=== PATIENT | female | born 1990 | race Caucasian/White ===

== ENCOUNTER 2017-08-22 16:23 | Emergency (ER) | payer MEDICAID ==
[~2017-08-22] VITALS: Ht 162.6 cm; Wt 75.5 kg
[2017-08-22 16:45] LABS: CLARITY,URINE SLIGHTLY CLOUDY (Clear); COLOR,URINE YELLOW (Yellow); GLUCOSE, URINE NEGATIVE (Neg); KETONES,URINE NEGATIVE (Neg); LEUKOCYTE ESTERASE ,URINE LARGE (Neg); NITRITES, URINE NEGATIVE (Neg); OCCULT BLOOD,URINE NEGATIVE (Neg); PH,URINE 7.5 (4.8-8.0); PROTEIN,URINE NEGATIVE (Neg); UROBILINOGEN,URINE 0.2 E.U/dL (0.2-1.0)
[2017-08-22 16:55] LABS: UA COLLECTION TYPE CLN CATCH MIDSTREAM
[2017-08-22 16:57] LABS: BACTERIA,URINE 1+ /HPF (Neg); RBC,URINE NONE SEEN /HPF (0-2); SQUAMOUS EPITHELIAL CELL,UR MANY /LPF (FEW); YEAST FEW /HPF (NEGATIVE)
[2017-08-22 17:09] LABS: BASOPHILS % (AUTO) 0.3 % (0-1); EOSINOPHILS # (AUTO) 0.1 X10'3 (0-0.9); HEMATOCRIT 39.9 % (35.0-45.0); HEMOGLOBIN 13.8 g/dl (12.0-16.0); LYMPHOCYTES # (AUTO) 2.7 X10'3 (1.1-4.8); LYMPHOCYTES % (AUTO) 47.9 % (21-51); MEAN CORPUSCULAR HEMOGLOBIN 29.3 PG (27.0-31.0); MEAN CORPUSCULAR HGB CONC 34.5 % (33.0-36.5); MEAN CORPUSCULAR VOLUME 84.8 FL (78-98); MEAN PLATELET VOLUME 7.7 FL (7.4-10.4); MONOCYTES # (AUTO) 0.5 X10'3 (0-0.9); MONOCYTES % (AUTO) 9.2 % (2-12); NEUTROPHILS # (AUTO) 2.3 X10'3 (1.8-7.7); NEUTROPHILS % (AUTO) 41.6 % (42-75); PLATELET COUNT 280 X10'3 (140-440); RED CELL DISTRIBUTION WIDTH 14.1 % (11.5-14.5); WHITE BLOOD COUNT 5.6 X10'3 (4.5-11.0)
[2017-08-22 17:19] LABS: PROTHROMBIN TIME 10.6 SECONDS (9.0-12.0)
[2017-08-22 17:23] LABS: HCG SERUM QL NEGATIVE
[2017-08-22 17:25] LABS: ALANINE AMINOTRANSFERASE 27 U/L (12-78); ALBUMIN 4.1 G/DL (3.4-5.0); ALBUMIN/GLOBULIN RATIO 1.1 (1.1-1.5); ALKALINE PHOSPHATASE 84 IU/L (46-116); AMYLASE 53 U/L (25-115); ANION GAP 5 (8-16); ASPARTATE AMINO TRANSFERASE 23 U/L (10-37); BILIRUBIN,TOTAL 0.8 MG/DL (0.1-1.0); BLOOD UREA NITROGEN 11 MG/DL (7-18); BUN/CREATININE RATIO 18.3 (6.6-38.0); CALCIUM 8.9 MG/DL (8.5-10.1); CHLORIDE 105 MMOL/L (99-107); GLUCOSE 74 MG/DL (70-104); LIPASE 196 U/L (73-393); POTASSIUM 3.8 MMOL/L (3.5-5.1); SODIUM 139 MMOL/L (135-145); TOTAL CARBON DIOXIDE 29.4 MMOL/L (24-32); eGFR > 90 ML/MIN
[2017-08-22 18:48] LABS: CLARITY,URINE Clear (Clear); COLOR,URINE Yellow (Yellow); GLUCOSE, URINE Negative (Neg); KETONES,URINE Negative (Neg); LEUKOCYTE ESTERASE ,URINE Moderate (Neg); NITRITES, URINE Negative (Neg); OCCULT BLOOD,URINE Negative (Neg); PROTEIN,URINE Negative (Neg)
[2017-08-22 18:59] LABS: UA COLLECTION TYPE CLN CATCH MIDSTREAM
[2017-08-22 19:09] LABS: MUCUS STRANDS NONE SEEN /LPF (Neg); RBC,URINE NONE SEEN /HPF (0-2); SQUAMOUS EPITHELIAL CELL,UR FEW /LPF (FEW)
[2017-08-22 19:10] LABS: BACTERIA,URINE FEW /HPF (Neg); WBC,URINE 0-4 /HPF (0-4)
[2017-08-22 19:24] VITALS: BP 120/99
== END 2017-08-22 19:27 | disposition home or self-care (01) ==
LOC: ER 16:24
DX: R10.12 Left upper quadrant pain (principal); F15.10 Other stimulant abuse, uncomplicated; Z60.2 Problems related to living alone
CPT/HCPCS: 36415; 80053; 81001; 82150; 83690; 84703; 85025; 85610; 87088; 99284

== ENCOUNTER 2017-09-29 21:20 | Emergency (ER) | payer MEDICAID ==
[~2017-09-29] VITALS: Ht 162.6 cm; Wt 77.0 kg
[2017-09-29 21:24] VITALS: BP 111/68
[2017-09-29] MEDS ORDERED: diphenhydrAMINE 25mg capsule PO ONE (22:05)
[2017-09-29] MEDS ORDERED: predniSONE 20 mg tablet PO ONE (22:05)
[2017-09-29] MEDS ORDERED: pseudoephedrine 30mg tablet PO ONE (22:05)
[2017-09-29] MEDS ORDERED: DIPH-423 PO (22:06)
[2017-09-29] MEDS ORDERED: PSEU120T43 PO (22:06)
[2017-09-29] MEDS ORDERED: METH4TAB81 PO (22:06)
== END 2017-09-29 22:18 | disposition home or self-care (01) ==
LOC: ER 21:22
DX: L50.9 Urticaria, unspecified (principal); J06.9 Acute upper respiratory infection, unspecified; I10 Essential (primary) hypertension; I25.2 Old myocardial infarction; Z90.710 Acquired absence of both cervix and uterus; F15.90 Other stimulant use, unspecified, uncomplicated; F11.10 Opioid abuse, uncomplicated
CPT/HCPCS: 99283; J7512; Q0163

== ENCOUNTER 2018-04-01 19:51 | Emergency (ER) | payer MEDICAID ==
[~2018-04-01] VITALS: Ht 162.6 cm; Wt 73.7 kg
[~2018-04-01 19:51] MED LIST: DIPH-423 PO; METH4TAB81 PO; PSEU120T56 PO
[2018-04-01 20:09] VITALS: BP 124/75
[2018-04-01] MEDS ORDERED: bacitracin 15gm ointment TP ONE (20:35)
[2018-04-01] MEDS ORDERED: ibuprofen tablet 400 MG TABLET PO ONE (20:35)
[2018-04-01] MEDS ORDERED: LIDOcaine 1.5% w/epinephrine 1:200,000 5ml ampul IJ ONE (20:35)
[2018-04-01] MEDS ORDERED: clindamycin 150mg capsule PO ONE (20:40)
[2018-04-01] MEDS ORDERED: CLIN150C2 PO (21:09)
== END 2018-04-01 21:18 | disposition home or self-care (01) ==
LOC: ER 19:51
DX: L03.113 Cellulitis of right upper limb (principal); I10 Essential (primary) hypertension; F15.10 Other stimulant abuse, uncomplicated; F11.10 Opioid abuse, uncomplicated; Z86.19 Personal history of other infectious and parasitic diseases; Z90.710 Acquired absence of both cervix and uterus; Z86.14 Personal history of Methicillin resistant Staphylococcus aureus infection
CPT/HCPCS: 10060; 99284; A6449; J3490

== ENCOUNTER 2018-04-30 16:16 | Emergency (ER) | payer MEDICAID ==
[~2018-04-30] VITALS: Ht 162.6 cm; Wt 76.4 kg
[~2018-04-30 16:16] MED LIST changes: +CLIN150C2 PO
[2018-04-30 16:42] VITALS: BP 114/68
[2018-04-30 16:53] LABS: BASOPHILS % (AUTO) 0.6 % (0-1); EOSINOPHILS # (AUTO) 0.1 X10'3 (0-0.9); EOSINOPHILS % (AUTO) 1.4 % (0-6); HEMATOCRIT 37.9 % (35.0-45.0); HEMOGLOBIN 13.1 g/dl (12.0-16.0); LYMPHOCYTES # (AUTO) 2.4 X10'3 (1.1-4.8); LYMPHOCYTES % (AUTO) 39.2 % (21-51); MEAN CORPUSCULAR HGB CONC 34.6 % (33.0-36.5); MEAN CORPUSCULAR VOLUME 83.8 FL (78-98); MEAN PLATELET VOLUME 7.8 FL (7.4-10.4); MONOCYTES # (AUTO) 0.6 X10'3 (0-0.9); NEUTROPHILS % (AUTO) 48.8 % (42-75); PLATELET COUNT 292 X10'3 (140-440); RED BLOOD COUNT 4.52 X10'6 (4.20-5.60); RED CELL DISTRIBUTION WIDTH 12.8 % (11.5-14.5); WHITE BLOOD COUNT 6.2 X10'3 (4.5-11.0)
[2018-04-30 16:57] LABS: CLARITY,URINE CLEAR (Clear); COLOR,URINE YELLOW (Yellow); GLUCOSE, URINE NEGATIVE (Neg); KETONES,URINE NEGATIVE (Neg); LEUKOCYTE ESTERASE ,URINE NEGATIVE (Neg); NITRITES, URINE NEGATIVE (Neg); OCCULT BLOOD,URINE NEGATIVE (Neg); PROTEIN,URINE TRACE mg/dl (Neg); URINE HCG NEGATIVE (NEG); UROBILINOGEN,URINE 0.2 E.U/dL (0.2-1.0)
[2018-04-30 17:02] LABS: UA COLLECTION TYPE CLN CATCH MIDSTREAM
[2018-04-30 17:07] LABS: MUCUS STRANDS MODERATE /LPF (Neg); SQUAMOUS EPITHELIAL CELL,UR MODERATE /LPF (FEW)
[2018-04-30 17:07] LABS: ALANINE AMINOTRANSFERASE 24 U/L (12-78); ALBUMIN 3.6 G/DL (3.4-5.0); ALKALINE PHOSPHATASE 101 IU/L (46-116); ANION GAP 10 (8-16); ASPARTATE AMINO TRANSFERASE 19 U/L (10-37); BILIRUBIN,TOTAL 0.3 MG/DL (0.1-1.0); BLOOD UREA NITROGEN 11 MG/DL (7-18); BUN/CREATININE RATIO 16.4 (6.6-38.0); CALCIUM 8.3 MG/DL (8.5-10.1); CHLORIDE 107 MMOL/L (99-107); CREATININE 0.67 MG/DL (0.40-0.90); GLUCOSE 97 MG/DL (70-104); POTASSIUM 4.1 MMOL/L (3.5-5.1); SODIUM 143 MMOL/L (135-145); TOTAL CARBON DIOXIDE 26.2 MMOL/L (24-32); TOTAL PROTEIN 7.3 G/DL (6.4-8.2); eGFR > 90 ML/MIN
[2018-04-30 17:10] LABS: BACTERIA,URINE FEW /HPF (Neg); RBC,URINE NONE SEEN /HPF (0-2); WBC,URINE NONE SEEN /HPF (0-4)
[2018-05-02] MEDS ORDERED: DICY10CA88 PO (18:23)
== END 2018-04-30 17:27 | disposition home or self-care (01) ==
LOC: ER 16:17
DX: R10.33 Periumbilical pain (principal); R19.7 Diarrhea, unspecified; R11.0 Nausea; I10 Essential (primary) hypertension; I25.2 Old myocardial infarction; I25.10 Atherosclerotic heart disease of native coronary artery without angina pectoris; F15.90 Other stimulant use, unspecified, uncomplicated; F11.90 Opioid use, unspecified, uncomplicated; Z79.2 Long term (current) use of antibiotics; Z79.899 Other long term (current) drug therapy; Z60.2 Problems related to living alone
CPT/HCPCS: 36415; 80053; 81001; 81025; 85025; 99284

== ENCOUNTER 2020-04-19 14:31 | Emergency (ER) | payer MEDICAID, OTHER ==
[~2020-04-19] VITALS: Ht 160 cm; Wt 59.1 kg
[~2020-04-19 14:31] MED LIST changes: -CLIN150C2 PO
[2020-04-19 15:09] VITALS: BP 124/85
== END 2020-04-19 16:18 | disposition home or self-care (01) ==
LOC: ER 14:32
DX: F15.10 Other stimulant abuse, uncomplicated (principal); I25.10 Atherosclerotic heart disease of native coronary artery without angina pectoris; I10 Essential (primary) hypertension; Z86.19 Personal history of other infectious and parasitic diseases; Z86.14 Personal history of Methicillin resistant Staphylococcus aureus infection; Z90.710 Acquired absence of both cervix and uterus; Z98.890 Other specified postprocedural states; Z79.899 Other long term (current) drug therapy
CPT/HCPCS: 99281

== ENCOUNTER 2020-05-11 14:22 | Emergency (ER) | payer MEDICAID, OTHER ==
[~2020-05-11] VITALS: Ht 160 cm; Wt 64.0 kg
[2020-05-11 14:30] VITALS: BP 97/63
[2020-05-11 15:15] LABS: CLARITY,URINE SLIGHTLY CLOUDY (Clear); COLOR,URINE YELLOW (Yellow); GLUCOSE, URINE NEGATIVE (Neg); KETONES,URINE NEGATIVE (Neg); LEUKOCYTE ESTERASE ,URINE SMALL (Neg); NITRITES, URINE NEGATIVE (Neg); OCCULT BLOOD,URINE NEGATIVE (Neg); PH,URINE 5.5 (4.8-8.0); PROTEIN,URINE NEGATIVE (Neg); URINE HCG NEGATIVE (NEG); UROBILINOGEN,URINE 0.2 E.U/dL (0.2-1.0)
[2020-05-11 15:20] LABS: UA COLLECTION TYPE CLN CATCH MIDSTREAM
[2020-05-11 15:23] LABS: BACTERIA,URINE FEW /HPF (Neg); RBC,URINE 0-2 /HPF (0-2); SQUAMOUS EPITHELIAL CELL,UR FEW /LPF (FEW)
[2020-05-11 15:24] LABS: MUCUS STRANDS FEW /LPF (Neg); WBC CLUMPS,URINE FEW /HPF (NEGATIVE)
[2020-05-11] MEDS ORDERED: CefTRIAXone 250MG IM Kit w/LIDOcaine IM ONE (15:40)
[2020-05-11] MEDS ORDERED: azithromycin 250mg tablet PO ONE (15:40)
[2020-05-11] MEDS ORDERED: METR500T PO (16:30)
[2020-05-11] MEDS ORDERED: LACT1CAP65 PO (16:30)
== END 2020-05-11 18:34 | disposition home or self-care (01) ==
LOC: ER 14:23
DX: A59.01 Trichomonal vulvovaginitis (principal); I25.10 Atherosclerotic heart disease of native coronary artery without angina pectoris; I10 Essential (primary) hypertension; I25.2 Old myocardial infarction; F11.90 Opioid use, unspecified, uncomplicated; F15.90 Other stimulant use, unspecified, uncomplicated; R11.0 Nausea; Z86.14 Personal history of Methicillin resistant Staphylococcus aureus infection; Z86.19 Personal history of other infectious and parasitic diseases; Z90.710 Acquired absence of both cervix and uterus; Z98.890 Other specified postprocedural states; Z60.2 Problems related to living alone; Z79.899 Other long term (current) drug therapy
CPT/HCPCS: 36415; 81001; 81025; 86592; 87088; 87210; 87491; 87591; 96372; 99283; J0696; Q0112